=== PATIENT | female | born 1940 | race Caucasian/White ===

== ENCOUNTER 2017-02-17 11:19 | Inpatient (IN) | payer MEDICARE, BC ==
[2017-02-17] MEDS ORDERED: SODIUM CHLORIDE 0.9% 1,000 ML IV STA (11:32)
[2017-02-17 12:06] LABS: Basophils # (A) 0.1 k/uL (0-0.2); Basophils % (A) 2 %; CH 30.4; CHCM 34.2; Eosinophils % (A) 0 %; HCT 43.4 % (34.0-46.0); HDW 2.25; HGB 15.2 gm/dL (11.4-16.0); Luc # (Auto) 0.12; Luc % (Auto) 3; Lymphocytes # (A) 0.6 k/uL (1.0-4.8); Lymphocytes % (A) 18 %; MCH 31.2 pg (25.0-35.0); MCV 89.1 fL (80.0-100.0); Mean Platelet Volume 7.1; Monocytes # (A) 0.4 k/uL (0-1.0); Monocytes % (A) 11 %; Neutrophils # (A) 2.3 k/uL (1.3-7.7); Neutrophils % (A) 66 %; RBC 4.87 m/uL (3.80-5.40); RDW 13.1 % (11.5-15.5); WBC 3.5 k/uL (3.8-10.6); WBC (Perox) 3.46
--- NOTE | 2017-02-17 12:06 | XR ---
EXAMINATION TYPE: XR chest 2V DATE OF EXAM: 02/17/2017 12:00 PM COMPARISON: Prior chest x-ray September 09, 2015 HISTORY: Syncope and weakness. TECHNIQUE: Frontal and lateral views of the chest are obtained. FINDINGS: There is no focal air space opacity, pleural effusion, or pneumothorax seen. The cardiac silhouette size is stable and enlarged. The osseous structures are demineralized. IMPRESSION: Cardiomegaly without acute pulmonary process currently.
[2017-02-17 12:15] LABS: Creatine Kinase 305 U/L (30-135)
[2017-02-17 12:16] LABS: ALT 43 U/L (9-52); AST 54 U/L (14-36); Alkaline Phosphatase 73 U/L (38-126); Anion Gap 12 mmol/L; Blood Urea Nitrogen 21 mg/dL (7-17); Calcium 8.8 mg/dL (8.4-10.2); Carbon Dioxide 27 mmol/L (22-30); Chloride 84 mmol/L (98-107); Glucose 119 mg/dL (74-99); Non-African American GFR(MDRD) >60 (>60 ml/min/1.73 sqM); Potassium 3.2 mmol/L (3.5-5.1); Sodium 123 mmol/L (137-145); Total Bilirubin 0.7 mg/dL (0.2-1.3); Total Protein 6.7 g/dL (6.3-8.2)
[2017-02-17 12:18] LABS: INR 1.2 (<1.1); Partial Thromboplastin Time 30.5 sec (22.0-30.0); Prothrombin Time 12.3 sec (9.0-12.0)
--- NOTE | 2017-02-17 12:24 | CT ---
EXAMINATION TYPE: CT brain wo con DATE OF EXAM: 02/17/2017 12:16 PM HISTORY: weakness per order. Fall injury with headache and possible loss of consciousness. CT DLP: 961 mGycm. Automated Exposure Control for Dose Reduction was Utilized. TECHNIQUE: CT scan of the head is performed without contrast. COMPARISON: None. FINDINGS: There is no acute intracranial hemorrhage or midline shift identified. There is diffuse v entricular and sulcal prominence consistent with diffuse age-related cerebral atrophy. There is low- attenuation in the periventricular white matter consistent with chronic small vessel ischemic change. There is patchy opacification involving inferior right frontal sinus and anterior right ethmoid sinu ses. Remainder of visualized paranasal sinuses are clear. Neither lens is well seen. The calvarium is intact. IMPRESSION: No acute intracranial hemorrhage or midline shift. There is mild diffuse age-related ce rebral atrophy and mild to moderate chronic small vessel ischemic change noted. Acute right-sided pa ranasal sinus disease is noted.
[2017-02-17 12:28] LABS: Creatine Kinase MB 2.2 ng/mL (0.0-2.4); Troponin I <0.012 ng/mL (0.000-0.034)
--- NOTE | 2017-02-17 12:48 | ED ---
Weakness HPI - General Chief complaint: Weakness Stated complaint: Weakness Time Seen by Provider: 02/17/17 11:24 Source: patient, EMS Mode of arrival: EMS Limitations: altered mental status - History of Present Illness Initial comments: She fell this morning between 9 and 9:30 she threw up before she fell and then she threw up after she fell I had a chance to talk to 2 of her sons none of them witnessed the fall she lives with her son and he was at work when she fell in no head there was a family members at home and she fell they said she was she had lost consciousness for about a 4 minutes and she is still unable to recall the full detail of the events, she denies any head injury there are no lacerations there are no hematomas she denies any neck pain she denies any other laceration or injury to the upper or lower extremities. She had upper respiratory tract infection she went to see her family doctor she was prescribed some antibiotics yesterday. At this point she denies any headache no chest pain or shortness of breath no abdominal pain no frequency urgency dysuria no signs of TIA or CVA Severity scale (1-10): 0 - Related Data Home Medications Medication Instructions Recorded Confirmed Beclomethasone Dip 80 Mcg/Puff 1 puff INHALATION RT-BID 02/17/17 02/17/17 [Qvar 80 mcg] Benzonatate [Tessalon Perles] 100 mg PO TID PRN 02/17/17 02/17/17 Bisoprolol [Zebeta] 5 mg PO HS 02/17/17 02/17/17 Citalopram Hydrobromide 20 mg PO DAILY 02/17/17 02/17/17 [Citalopram HBr] Doxycycline Hyclate [Doxycycline 100 mg PO BID 02/17/17 02/17/17 Hyclate] LORazepam [Lorazepam] 1 mg PO HS 02/17/17 02/17/17 Latanoprost [Latanoprost] 1 drop BOTH EYES HS 02/17/17 02/17/17 Losartan/Hydrochlorothiazide 1 tab PO DAILY 02/17/17 02/17/17 [Losartan-Hctz 100-25 mg Tab] Montelukast [Singulair] 10 mg PO HS 02/17/17 02/17/17 Timolol 0.5% Ophth Gel Forming 1 drops BOTH EYES DAILY 02/17/17 02/17/17 [Timoptic-Xe] Allergies Allergy/AdvReac Type Severity Reaction Status Date / Time Penicillins Allergy Unknown Verified 02/17/17 12:54 Review of Systems ROS Statement: Those systems with pertinent positive or pertinent negative responses have been documented in the HPI. ROS Other: All systems not noted in ROS Statement are negative. Past Medical History Past Surgical History: Appendectomy, Cholecystectomy Additional Past Surgical History / Comment(s): eye surgery, ootorectomy General Exam - General Exam Comments Initial Comments: General: The patient is awake and alert, in no distress is look pale and tired though GCS is 15 Skin: Skin is warm and dry and no rashes or lesions are noted. Examination of the scalp did not reveal any hematoma, abrasion or ecchymosis Eye: Pupils are equal, round and reactive to light, extra-ocular movements are intact; there is normal conjunctiva bilaterally. Ears, nose, mouth and throat: There are moist mucous membranes and no oral lesions. Neck: The neck is supple, there is no tenderness no focal tenderness noticed on the patient to the cervical spine Cardiovascular: There is a regular rate and rhythm. No murmur, rub or gallop is appreciated. Respiratory: To auscultation bilateral, no wheezing no rhonchi no distress respiratory bolivar noticed Gastrointestinal: Soft, non-distended, non-tender abdomen without masses or organomegaly noted. There is no rebound or guarding present. Bowel sounds are unremarkable. Back: There is no tenderness to palpation in the midline. There is no obvious deformity. Musculoskeletal: Normal ROM, no tenderness, There is no pedal edema. There is no calf tenderness or swelling. No cords were appreciated. Neurological: CN II-XII intact, Cranial nerves III through XII are intact. There are no obvious motor or sensory deficits. Coordination appears grossly intact. Speech is normal. Psychiatric: Cooperative, appropriate mood & affect, normal judgment. Limitations: altered mental status Course Vital Signs 02/17/17 02/17/17 02/17/17 11:19 11:37 11:52 Temperature 97.2 F L 97.9 F Pulse Rate 60 Pulse Rate [ 60 58 L Right Supine Vest Finisher ] Respiratory 16 16 16 Rate Blood Pressure 134/63 Blood Pressure 120/62 122/64 [Right Arm Supine] O2 Sat by Pulse 98 Oximetry 02/17/17 02/17/17 12:22 12:30 Temperature 97.0 F L Pulse Rate 60 Pulse Rate [ 62 Right Supine Vest Finisher ] Respiratory 16 16 Rate Blood Pressure 124/60 Blood Pressure 127/64 [Right Arm Supine] O2 Sat by Pulse 98 Oximetry EKG Findings - EKG Comments: EKG Findings:: EKG is a sinus bradycardia with short NV interval B ventricular rate is 58 NV interval is 96 QRS duration is 84 QT/QTc is 452/443 review of this EKG reveals some T-wave flattening in lead 3 and aVF as well as V1 no ST elevation or ST depression noticed in the other leads Medical Decision Making - Lab Data Result diagrams: 02/17/17 11:35 02/17/17 11:35 Lab Results 02/17/17 02/17/17 02/17/17 Range/Units 11:35 11:35 11:35 WBC 3.5 L (3.8-10.6) k/uL RBC 4.87 (3.80-5.40) m/uL Hgb 15.2 (11.4-16.0) gm/dL Hct 43.4 (34.0-46.0) % MCV 89.1 (80.0-100.0) fL MCH 31.2 (25.0-35.0) pg MCHC 35.0 (31.0-37.0) g/dL RDW 13.1 (11.5-15.5) % Plt Count 201 (150-450) k/uL Neutrophils % 66 % Lymphocytes % 18 % Monocytes % 11 % Eosinophils % 0 % Basophils % 2 % Neutrophils # 2.3 (1.3-7.7) k/uL Lymphocytes # 0.6 L (1.0-4.8) k/uL Monocytes # 0.4 (0-1.0) k/uL Eosinophils # 0.0 (0-0.7) k/uL Basophils # 0.1 (0-0.2) k/uL PT (9.0-12.0) sec INR (<1.1) APTT (22.0-30.0) sec Sodium 123 L (137-145) mmol/L Potassium 3.2 L (3.5-5.1) mmol/L Chloride 84 L (98-107) mmol/L Carbon Dioxide 27 (22-30) mmol/L Anion Gap 12 mmol/L BUN 21 H (7-17) mg/dL Creatinine 0.73 (0.52-1.04) mg/dL Est GFR (MDRD) Af Amer >60 (>60 ml/min/1.73 sqM) Est GFR (MDRD) Non-Af >60 (>60 ml/min/1.73 sqM) Glucose 119 H (74-99) mg/dL Plasma Lactic Acid Kan[place] (0.7-2.0) mmol/L Calcium 8.8 (8.4-10.2) mg/dL Total Bilirubin 0.7 (0.2-1.3) mg/dL AST 54 H (14-36) U/L ALT 43 (9-52) U/L Alkaline Phosphatase 73 (38-126) U/L Total Creatine Kinase 305 H (30-135) U/L CK-MB (CK-2) 2.2 (0.0-2.4) ng/mL CK-MB (CK-2) Rel Index 0.7 Troponin I <0.012 (0.000-0.034) ng/mL Total Protein 6.7 (6.3-8.2) g/dL Albumin 3.8 (3.5-5.0) g/dL Urine Color Urine Appearance (Clear) Urine pH (5.0-8.0) Ur Specific [place] (1.001-1.035) Urine Protein (Negative) Urine Glucose (UA) (Negative) Urine Ketones (Negative) Urine Blood (Negative) Urine Nitrite (Negative) Urine Bilirubin (Negative) Urine Urobilinogen (<2.0) mg/dL Ur Leukocyte Esterase (Negative) Urine RBC (0-5) /hpf Urine WBC (0-5) /hpf Urine Bacteria (None) /hpf Hyaline Casts (0-2) /lpf Urine Mucus (None) /hpf 02/17/17 02/17/17 02/17/17 Range/Units 11:35 11:35 14:10 WBC (3.8-10.6) k/uL RBC (3.80-5.40) m/uL Hgb (11.4-16.0) gm/dL Hct (34.0-46.0) % MCV (80.0-100.0) fL MCH (25.0-35.0) pg MCHC (31.0-37.0) g/dL RDW (11.5-15.5) % Plt Count (150-450) k/uL Neutrophils % % Lymphocytes % % Monocytes % % Eosinophils % % Basophils % % Neutrophils # (1.3-7.7) k/uL Lymphocytes # (1.0-4.8) k/uL Monocytes # (0-1.0) k/uL Eosinophils # (0-0.7) k/uL Basophils # (0-0.2) k/uL PT 12.3 H (9.0-12.0) sec INR 1.2 (<1.1) APTT 30.5 H (22.0-30.0) sec Sodium (137-145) mmol/L Potassium (3.5-5.1) mmol/L Chloride (98-107) mmol/L Carbon Dioxide (22-30) mmol/L Anion Gap mmol/L BUN (7-17) mg/dL Creatinine (0.52-1.04) mg/dL Est GFR (MDRD) Af Amer (>60 ml/min/1.73 sqM) Est GFR (MDRD) Non-Af (>60 ml/min/1.73 sqM) Glucose (74-99) mg/dL Plasma Lactic Acid [place] 1.2 (0.7-2.0) mmol/L Calcium (8.4-10.2) mg/dL Total Bilirubin (0.2-1.3) mg/dL AST (14-36) U/L ALT (9-52) U/L Alkaline Phosphatase (38-126) U/L Total Creatine Kinase (30-135) U/L CK-MB (CK-2) (0.0-2.4) ng/mL CK-MB (CK-2) Rel Index Troponin I (0.000-0.034) ng/mL Total Protein (6.3-8.2) g/dL Albumin (3.5-5.0) g/dL Urine Color Yellow Urine Appearance Clear (Clear) Urine pH 6.0 (5.0-8.0) Ur Specific [place] 1.017 (1.001-1.035) Urine Protein 2+ H (Negative) Urine Glucose (UA) Negative (Negative) Urine Ketones 1+ H (Negative) Urine Blood Small H (Negative) Urine Nitrite Negative (Negative) Urine Bilirubin Negative (Negative) Urine Urobilinogen <2.0 (<2.0) mg/dL Ur Leukocyte Esterase Negative (Negative) Urine RBC 1 (0-5) /hpf Urine WBC 1 (0-5) /hpf Urine Bacteria Rare H (None) /hpf Hyaline Casts 3 H (0-2) /lpf Urine Mucus Rare H (None) /hpf Disposition Clinical Impression: Fall, Hyponatremia, Hypokalemia, Syncope, Amnesia Disposition: ADMITTED IP TO THIS HOSP Condition: Fair Referrals: Aroldo Lowe DO [Primary Care Provider] - 1-2 days
[2017-02-17 14:35] LABS: Appearance,Urine Clear (Clear); Bacteria,Urine Rare /hpf; Bilirubin,Urine Negative (Negative); Glucose,Urine (UA) Negative (Negative); Ketones,Urine 1+ (Negative); Leukocyte Esterase,Urine Negative (Negative); Mucus,Urine Rare /hpf; Nitrite,Urine Negative (Negative); Particle Count 4728; Protein,Urine 2+ (Negative); RBC,Urine 1 /hpf (0-5); Specific Gravity,Urine 1.017 (1.001-1.035); UA Billing (MACRO vs. MICRO) MICRO; Urobilinogen,Urine <2.0 mg/dL (<2.0); WBC,Urine 1 /hpf (0-5)
[2017-02-17] MEDS ORDERED: NALOXONE 0.4 MG/ML 1 ML VIAL IV PRN (15:04)
[2017-02-17] MEDS ORDERED: BENZONATATE 100 MG CAP PO PRN (15:08)
[2017-02-17] MEDS ORDERED: POTASSIUM CHLORIDE ORAL LIQUID 40 MEQ/30 ML CUP PO ONE (15:09)
--- NOTE | 2017-02-17 16:07 | P.HPIM ---
History of Present Illness H&P Date: 02/17/17 Chief Complaint: Syncope/hyponatremia This is a 76-year-old female one of Dr. Lowe with a previous medical history significant for hypertension and hypertensive cardiovascular disease, osteoarthritis, patient has not been feeling well for the past week with poor appetite associated with early satiety, nausea feeling without any vomiting, patient was complaining of increased pressure behind her sinuses she ended up going to [facility], and she was prescribed doxycycline 100 mg orally twice every day along with the Tessalon Perles 3 times every day, patient only took one of each and the patient was going into the kitchen today where she felt extremely dizzy and then she passed out completely lasted for about 3-4 minutes EMS came and the patient was on the floor her [id number] ran to the kitchen and she found her on the floor without any loss of urine or stool there was no seizure activity described at that time. Patient was brought into the emergency department at [facility] via EMS and she was found to have a severe hyponatremia and hypokalemia along with hypochloremia, upon investigated the patient further she stated that she had significant diarrhea today and she had an episode of nausea and vomiting by the time she came to the emergency department, she has been taking her dictations on an empty stomach and she has a diuretics, patient stated also that the while ago she developed to have a severe hyponatremia and she was placed on sodium chloride tablets by Dr. Lowe but she was taken off of those because her sodium was back to normal. Patient had a computed tomography scan of the brain that was negative for acute infarct or bleed, chest x-ray was normal, EKG was normal, patient was admitted to the hospital for syncope thought to be vasovagal with orthostatic changes, patient will be seen and evaluated by neurology as well. Review of Systems Constitutional: Reports fatigue, Reports malaise, Reports sweats, Reports weakness, Reports weight loss, Denies chills, Denies chronic headaches, Denies chronic pain Eyes: denies blurred vision, denies bulging eye, denies decreased vision, denies diplopia, denies discharge Ears: deny: decreased hearing Ears, nose, mouth and throat: Reports sinus pain, Reports sinus pressure, Reports vertigo, Denies dysphagia, Denies neck lump, Denies sore throat Cardiovascular: Reports high blood pressure, Denies chest pain, Denies decreased exercise tolerance, Denies dyspnea on exertion, Denies phlebitis, Denies rapid heart beat, Denies shortness of breath, Denies syncope Respiratory: Denies congestion, Denies cough, Denies cough with sputum, Denies dyspnea, Denies home oxygen, Denies sleep apnea, Denies snoring, Denies wheezing Gastrointestinal: Reports change in bowel habits, Reports diarrhea, Reports early satiety, Reports loss of appetite, Reports nausea, Reports vomiting, Denies abdominal pain, Denies belching, Denies bloating, Denies hematemesis, Denies hematochezia, Denies indigestion, Denies lactose intolerance, Denies melena Genitourinary: Denies dysuria, Denies hematuria Menstruation: Reports postmenopausal Musculoskeletal: Denies atrophy, Denies fractures, Denies gait dysfunction, Denies low back pain, Denies prior amputations, Denies redness of joints, Denies shooting arm pain Musculoskeletal: absent: ankle pain, ankle stiffness, ankle swelling, elbow pain , elbow stiffness, elbow swelling, foot pain, foot stiffness, foot swelling, hand pain, hand stiffness, hand swelling, hip pain, hip stiffness, hip swelling , knee pain, knee stiffness, knee swelling, shoulder pain, shoulder stiffness, shoulder swelling, wrist pain, wrist stiffness, wrist swelling Integumentary: Denies pruritus, Denies rash Neurological: Reports syncope, Denies confusion, Denies convulsions, Denies loss of vision, Denies memory loss, Denies motor disturbance, Denies paralysis, Denies paresthesias Psychiatric: Reports anxiety, Reports depression, Denies sadness/tearfulness, Denies sleep disturbances, Denies suicidal ideation Endocrine: Denies fatigue, Denies weight change Past Medical History Past Medical History: Hyperlipidemia, Hypertension, Osteoarthritis (OA) Past Surgical History: Appendectomy, Cholecystectomy Additional Past Surgical History / Comment(s): Bilateral cataract surgery, Cholecystectomy, appendectomy, colonoscopy about 10 years ago, oophorectomy. Past Psychological History: Anxiety, Depression Smoking Status: Never smoker Past Drug Use History: None Reported - Past Family History Mother Family Medical History: Cancer, CVA/TIA (Mother at age of 91 from CVA and had breast cancer.) Father Family Medical History: CVA/TIA, Dementia (Father at age of 84 from CVA as well as Alzheimer dementia.) Brother(s) Family Medical History: Coronary Artery Disease (CAD) (Patient had one brother who from heart disease.) Sister(s) Family Medical History: Cancer (Patient had 2 sisters one of them with breast cancer and metastatic disease to the bone the other one with breast cancer.) Son(s) Family Medical History: No Reported History (Patient has 2 sons no major medical problems.) Medications and Allergies Home Medications Medication Instructions Recorded Confirmed Type Beclomethasone Dip 80 Mcg/Puff 1 puff INHALATION RT-BID 02/17/17 02/17/17 History [Qvar 80 mcg] Benzonatate [Tessalon Perles] 100 mg PO TID PRN 02/17/17 02/17/17 History Bisoprolol [Zebeta] 5 mg PO HS 02/17/17 02/17/17 History Citalopram Hydrobromide 20 mg PO DAILY 02/17/17 02/17/17 History [Citalopram HBr] Doxycycline Hyclate [Doxycycline 100 mg PO BID 02/17/17 02/17/17 History Hyclate] LORazepam [Lorazepam] 1 mg PO HS 02/17/17 02/17/17 History Latanoprost [Latanoprost] 1 drop BOTH EYES HS 02/17/17 02/17/17 History Losartan/Hydrochlorothiazide 1 tab PO DAILY 02/17/17 02/17/17 History [Losartan-Hctz 100-25 mg Tab] Montelukast [Singulair] 10 mg PO HS 02/17/17 02/17/17 History Timolol 0.5% Ophth Gel Forming 1 drops BOTH EYES DAILY 02/17/17 02/17/17 History [Timoptic-Xe] Allergies Allergy/AdvReac Type Severity Reaction Status Date / Time Penicillins Allergy Unknown Verified 02/17/17 12:54 Physical Exam Vitals: Vital Signs Pulse Pulse Pulse Resp BP BP BP 02/17/17 15:06 64 67 75 16 134/62 103/55 121/68 - Constitutional General appearance: average body habitus, no acute distress - EENT Eyes: anicteric sclerae, EOMI, PERRLA, no ptosis, no scleral icterus, normal appearance ENT: hearing grossly normal, NA/AT, normal oropharynx, no thrush Ears: bilateral: normal - Neck Neck: no lymphadenopathy, normal ROM, no rigidity, no stridor, no thyromegaly Carotids: bilateral: upstroke normal Thyroid: bilateral: normal size - Respiratory Respiratory: bilateral: diminished, negative: dullness, rales, rhonchi, wheezing , prolonged expiration, prolonged inspiration - Cardiovascular Rhythm: regular Heart sounds: normal: S1, S2 Abnormal Heart Sounds: no systolic murmur, no diastolic murmur, no S3 Gallop, no S4 Gallop - Gastrointestinal General gastrointestinal: normal bowel sounds, soft, no splenomegaly, no tenderness, no umbilical hernia, no ventral hernia - Integumentary Integumentary: normal, normal turgor - Neurologic Neurologic: CNII-XII intact - Musculoskeletal Musculoskeletal: gait normal, generalized weakness, strength equal bilaterally - Psychiatric Psychiatric: A&O x's 3, appropriate affect, intact judgment & insight Results CBC & Chem 7: 02/17/17 11:35 02/17/17 11:35 Thrombosis Risk Factor Assmnt - DVT/VTE Prophylaxis DVT/VTE Prophylaxis: Pharmacologic Prophylaxis ordered, Mechanical Prophylaxis ordered Assessment and Plan Plan: Assessment and plan: 1. Syncope likely related to hypovolemia with vasovagal reaction. Patient was given normal saline 1 L followed by normal saline at 125 mL an hour, apply knee- high RAHEEL hose, we will follow-up with the patient, continue to monitor the orthostatics. 2. Hypovolemic hyponatremia with hypochloremia and hypokalemia. Related to poor oral intake of fluid and the use of diuretics, subsequently we'll discontinue hydrochlorothiazide and continue losartan 100 mg orally once every day. Monitor the patient the CMP in the next 6 hours. We will check serum as well as as well as the patient did have a history of hyponatremia in the past. We will check TSH, free cortisol level. 3. Acute sinusitis. Continue patient on IV anabiotic in the form of Levaquin. 4. Hypertension and hypertensive cardiovascular disease. Continue bisoprolol 5 mg orally once every day, losartan 100 mg orally once every day. 5. Glaucoma. Continue patient on timolol as well as Xalatan. 6. Osteoarthritis. Continue current pain management. 7. Anxiety disorder. Continue citalopram 20 mg orally once every day as well as lorazepam 1 mg at bedtime. 8. Asthma. Continue Qvar 80 g 1 puff inhalation twice every day as well as singular 10 mg at bed time. 9. DVT prophylaxis. Continue patient on heparin 5000 units subcutaneously every 12 hours, along with knee-high RAHEEL hose. 10. GI prophylaxis. Continue patient on Protonix 40 mg orally once every day. 11. Admitted to inpatient. Estimate a length of stay 2 midnights. 12. Patient is a full code.
[2017-02-17 19:45] LABS: Anion Gap 11 mmol/L; Blood Urea Nitrogen 19 mg/dL (7-17); Calcium 8.7 mg/dL (8.4-10.2); Carbon Dioxide 27 mmol/L (22-30); Chloride 88 mmol/L (98-107); Glucose 106 mg/dL (74-99); Non-African American GFR(MDRD) >60 (>60 ml/min/1.73 sqM); Potassium 3.6 mmol/L (3.5-5.1); Sodium 126 mmol/L (137-145)
[2017-02-17] MEDS: MONTELUKAST 10 MG TAB PO SCH (20:15)
[2017-02-17] MEDS: LATANOPROST 0.005% OPHTH DROPS 2.5 ML BTL BOTH EYES SCH (20:15)
[2017-02-17] MEDS: LORazepam 1 MG TAB PO SCH (20:15)
[2017-02-17] MEDS: HEPARIN SODIUM,PORCINE 5,000 UNIT/ML 1 ML VIAL SQ SCH (20:15)
[2017-02-17] MEDS ORDERED: BISOPROLOL 5 MG TAB PO SCH (21:00)
[2017-02-17] MEDS ORDERED: DOXYCYCLINE 50 MG CAP PO SCH (21:00)
--- NOTE | 2017-02-17 21:31 | P.CNNES ---
History of Present Illness Consult date: 02/17/17 Reason for Consult: Patient being evaluated for syncope and hyponatremia. History of Present Illness: This patient is a 76-year-old right-handed white female who apparently today had episode in which she passed out at home. Patient was not feeling well today and did have a bout of diarrhea and nausea vomiting. She was found collapsed on the kitchen floor and EMS was called to the home. She was brought into the emergency room where she was seen in the ER by Dr. Fay. She was sent for a computed tomography scan of the brain which revealed only mild diffuse age-related atrophy. There was chronic small vessel ischemic changes noted. Patient was subsequent admitted to Hospital. Patient does not have clear memory of the actual syncopal episode. She did not have any seizure activity according to the patient. She did not bite her tongue or have any bowel or bladder incontinence. In the emergency room the patient was found to have evidence of severe hyponatremia. Her serum sodium was 123. She was put on a normal saline drip and admitted to Hospital. Patient is now resting comfortably. She denies any symptoms of significant weakness at this time. She denies any previous history of TIA or stroke. We reviewed the computed tomography scan of the brain results with her today at length. Patient apparently has had hyponatremia in the past. She was placed on sodium tablets in the past. Patient's symptoms suggest also possibility of vasovagal syncope and orthostatic changes. She does not remember if she was feeling lightheaded on arising early in the morning. She will be checked for orthostatic blood pressure changes. She may require further evaluation for possibility of SIADH syndrome. As noted she has no previous history of TIA or stroke. She is now been admitted and neurology has been consulted for further evaluation and recommendations. Review of Systems Constitutional: Denies chills, Denies fever Eyes: denies blurred vision, denies pain Ears, nose, mouth and throat: Denies headache, Denies sore throat Cardiovascular: Denies chest pain, Denies shortness of breath Respiratory: Denies cough Gastrointestinal: Denies abdominal pain, Denies diarrhea, Denies nausea, Denies vomiting Genitourinary: Denies dysuria, Denies hematuria Musculoskeletal: Denies myalgias Integumentary: Denies pruritus, Denies rash Neurological: Reports change in mentation, Reports paresthesias, Reports syncope , Denies numbness, Denies weakness Psychiatric: Denies anxiety, Denies depression Endocrine: Denies fatigue, Denies weight change Past Medical History Past Medical History: Asthma, Hyperlipidemia, Hypertension, Osteoarthritis (OA) , Sleep Apnea/CPAP/BIPAP Additional Past Medical History / Comment(s): hiatal hernia History of Any Multi-Drug Resistant Organisms: None Reported Past Surgical History: Appendectomy, Cholecystectomy Additional Past Surgical History / Comment(s): Bilateral cataract surgery, Cholecystectomy, appendectomy, colonoscopy about 10 years ago, rt oophorectomy and partial lt -pt can't remember why. Past Anesthesia/Blood Transfusion Reactions: No Reported Reaction Past Psychological History: Anxiety, Depression Additional Psychological History / Comment(s): pt lives in her 2 story home [place] has 4 front steps. her son,vin in law, 2 grandkids -live with her. no pets, no outside services recieved, no medical equipment. 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 Smoking Status: Never smoker Past Alcohol Use History: None Reported Past Drug Use History: None Reported - Past Family History Mother Family Medical History: Cancer, CVA/TIA Additional Family Medical History / Comment(s): breast cancer Father Family Medical History: CVA/TIA, Dementia Brother(s) Family Medical History: Coronary Artery Disease (CAD) Sister(s) Family Medical History: Cancer Son(s) Family Medical History: No Reported History Medications and Allergies Home Medications Medication Instructions Recorded Confirmed Type Beclomethasone Dip 80 Mcg/Puff 1 puff INHALATION RT-BID 02/17/17 02/17/17 History [Qvar 80 mcg] Benzonatate [Tessalon Perles] 100 mg PO TID PRN 02/17/17 02/17/17 History Bisoprolol [Zebeta] 5 mg PO HS 02/17/17 02/17/17 History Citalopram Hydrobromide 20 mg PO DAILY 02/17/17 02/17/17 History [Citalopram HBr] Doxycycline Hyclate [Doxycycline 100 mg PO BID 02/17/17 02/17/17 History Hyclate] LORazepam [Lorazepam] 1 mg PO HS 02/17/17 02/17/17 History Latanoprost [Latanoprost] 1 drop BOTH EYES HS 02/17/17 02/17/17 History Losartan/Hydrochlorothiazide 1 tab PO DAILY 02/17/17 02/17/17 History [Losartan-Hctz 100-25 mg Tab] Montelukast [Singulair] 10 mg PO HS 02/17/17 02/17/17 History Timolol 0.5% Ophth Gel Forming 1 drops BOTH EYES DAILY 02/17/17 02/17/17 History [Timoptic-Xe] Allergies Allergy/AdvReac Type Severity Reaction Status Date / Time Penicillins Allergy Unknown Verified 02/17/17 12:54 Physical Examination - Vital Signs Vital Signs: Vital Signs Temp Pulse Pulse Pulse Resp BP BP 02/17/17 15:36 97.0 F L 63 16 130/68 02/17/17 15:06 64 67 75 16 134/62 BP BP Pulse Ox 02/17/17 15:36 98 02/17/17 15:06 103/55 121/68 Intake and Output 02/17/17 02/17/17 02/17/17 06:59 14:59 22:59 Intake Total 10 Balance 10 Intake: IV 10 Invasive Line 2 10 Other: Voiding Method Toilet - Constitutional General appearance: average body habitus, cooperative - EENT EENT: PERRL, mucous membranes moist - Respiratory Respiratory: lungs clear, normal breath sounds - Cardiovascular Cardiovascular: regular rate, normal S1, normal S2 Extremities: no peripheral edema bilaterally - Gastrointestinal Gastrointestinal: normoactive bowel sounds - Integumentary Integumentary: normal - Neurologic Cranial nerve examination: PERRL, EOMI, VFF, V1/V2/V3 grossly intact, face symmetric, intact gag reflex, intact corneal reflex, normal palatal elevation Speech examination: intact Sensorimotor examination: intact Detailed motor examination: grossly full strength in all extremities Detailed sensory examination: intact Reflex and gait examination: intact Reflexes: 1+: ankle, bicep, knee, tricep - Musculoskeletal Musculoskeletal: no pain - Psychiatric Psychiatric: mood/affect appropriate, cooperative Results - Laboratory Findings CBC and BMP: 02/17/17 11:35 02/17/17 17:21 Abnormal Lab Findings: Abnormal Labs 02/17/17 17:21 Sodium 126 L Chloride 88 L BUN 19 H Glucose 106 H TSH 0.374 L Assessment and Plan (1) Vasovagal syncope Status: Acute Code(s): R55 - SYNCOPE AND COLLAPSE (2) Amnesia Status: Acute Code(s): R41.3 - OTHER AMNESIA (3) Hyponatremia Status: Acute Code(s): E87.1 - HYPO-OSMOLALITY AND HYPONATREMIA Plan: This patient is a pleasant 76-year-old female who had a acute syncopal episode at home. She was brought into the emergency room for further evaluation. She is found to have evidence of severe hyponatremia with a serum sodium of 123. She was started on normal saline and admitted to the hospital. Her neurological examination at this time is nonfocal. She underwent computed tomography scan of the brain results which are noted above. This patient likely suffered acute vasovagal syncope secondary to severe hyponatremia. Would recommend slow correction of the hyponatremic state. We will continue close neurological follow-up for this patient during this admission. She has no previous history of syncope and/or seizures. We will continue to monitor her closely for any neurological status. Her overall prognosis at this time remains guarded. Time with Patient: Greater than 30
[2017-02-18 06:22] LABS: Aty Lym Flag Slight; CH 30.2; CHCM 33.5; HCT 38.4 % (34.0-46.0); HDW 2.24; MCH 30.5 pg (25.0-35.0); MCHC 33.7 g/dL (31.0-37.0); MCV 90.3 fL (80.0-100.0); Mean Platelet Volume 7.2; RBC 4.25 m/uL (3.80-5.40); RDW 13.1 % (11.5-15.5); WBC 3.1 k/uL (3.8-10.6); WBC (Perox) 3.08
[2017-02-18 06:40] LABS: Add Differential Manual Differential
[2017-02-18 06:40] LABS: ALT 42 U/L (9-52); AST 52 U/L (14-36); Alkaline Phosphatase 55 U/L (38-126); Anion Gap 9 mmol/L; Blood Urea Nitrogen 15 mg/dL (7-17); Calcium 8.4 mg/dL (8.4-10.2); Carbon Dioxide 24 mmol/L (22-30); Chloride 94 mmol/L (98-107); Glucose 89 mg/dL (74-99); Non-African American GFR(MDRD) >60 (>60 ml/min/1.73 sqM); Sodium 127 mmol/L (137-145); Total Bilirubin 0.6 mg/dL (0.2-1.3); Total Protein 5.6 g/dL (6.3-8.2)
[2017-02-18 06:43] LABS: Nucleated Red Blood Cells 0 /100 WBC (0-0); Total Cells Counted 100
[2017-02-18 06:44] LABS: Manual Review Performed
[2017-02-18 06:55] LABS: Potassium 3.3 mmol/L (3.5-5.1)
[2017-02-18] MEDS: BECLOMETHASONE DIP 80 MCG/PUFF INHALER INHALATION SCH ×3 (07:44→21:23)
[2017-02-18] MEDS ORDERED: POTASSIUM CHLORIDE ER 20 MEQ TAB.ER PO STA (09:00)
[2017-02-18] MEDS: CITALOPRAM HYDROBROMIDE 20 MG TAB PO SCH (09:03)
[2017-02-18] MEDS: HEPARIN SODIUM,PORCINE 5,000 UNIT/ML 1 ML VIAL SQ SCH ×2 (09:03→20:28)
[2017-02-18] MEDS: POTASSIUM CHLORIDE ORAL LIQUID 40 MEQ/30 ML CUP PO SCH (09:04)
[2017-02-18] MEDS: TIMOLOL 0.5% OPHTH DROPS 5 ML BTL BOTH EYES SCH ×2 (09:05→20:27)
--- NOTE | 2017-02-18 10:16 | P.PN ---
Subjective This is a 76-year-old female one of Dr. Lowe with a previous medical history significant for hypertension and hypertensive cardiovascular disease, osteoarthritis, patient has not been feeling well for the past week with poor appetite associated with early satiety, nausea feeling without any vomiting, patient was complaining of increased pressure behind her sinuses she ended up going to [facility] urgent care [facility], and she was prescribed doxycycline 100 mg orally twice every day along with the Tessalon Perles 3 times every day, patient only took one of each and the patient was going into the kitchen today where she felt extremely dizzy and then she passed out completely lasted for about 3-4 minutes EMS came and the patient was on the floor her [id number] ran to the kitchen and she found her on the floor without any loss of urine or stool there was no seizure activity described at that time. Patient was brought into the emergency department at [facility] via EMS and she was found to have a severe hyponatremia and hypokalemia along with hypochloremia, upon investigated the patient further she stated that she had significant diarrhea today and she had an episode of nausea and vomiting by the time she came to the emergency department, she has been taking her dictations on an empty stomach and she has a diuretics, patient stated also that the while ago she developed to have a severe hyponatremia and she was placed on sodium chloride tablets by Dr. Lowe but she was taken off of those because her sodium was back to normal. Patient had a computed tomography scan of the brain that was negative for acute infarct or bleed, chest x-ray was normal, EKG was normal, patient was admitted to the hospital for syncope thought to be vasovagal with orthostatic changes, patient will be seen and evaluated by neurology as well. 02/18: Patient has been evaluated by Dr. Adair likely patient suffered acute vasovagal syncope secondary to severe hyponatremia. Sodium is now 127, potassium is 3.3 and will be replaced. Chloride 94. IV fluids continued at 100 mL per hour. Urine osmolality and sodium ordered. Patient denies lightheadedness or dizziness. TSH was 0.374 and free T4 1 0.77. Blood and urine cultures are in process. A shunt went into a junctional rhythm for which cardiology consult and echocardiogram ordered. Bisoprlol placed on hold and losartan resumed without hydrochlorothiazide. Patient states her appetite is a little better. Objective - Vital Signs Vital signs: Vital Signs Temp 97.3 F L 02/17/17 20:00 Pulse 71 02/18/17 04:00 Resp 16 02/18/17 04:00 BP 141/61 02/18/17 04:00 Pulse Ox 97 02/18/17 04:00 Intake & Output 02/17/17 02/18/17 02/18/17 18:59 06:59 18:59 Intake Total 10 10 1320 Output Total 1 Balance 10 9 1320 Weight 85.4 kg Intake: IV 10 10 Invasive Line 2 10 10 Intake, IV Titration 1200 Amount Sodium Chloride 0.9% 1, 1200 000 ml @ 100 mls/hr IV . Q10H STA Rx#:[id number] Oral 120 Output: Stool 1 Other: Voiding Method Toilet Toilet # Voids 1 1 - Exam General appearance: average body habitus, no acute distress - EENT Eyes: anicteric sclerae, EOMI, PERRLA, no ptosis, no scleral icterus, normal appearance ENT: hearing grossly normal, NA/AT, normal oropharynx, no thrush Ears: bilateral: normal - Neck Neck: no lymphadenopathy, normal ROM, no rigidity, no stridor, no thyromegaly Carotids: bilateral: upstroke normal Thyroid: bilateral: normal size - Respiratory Respiratory: bilateral: diminished, negative: dullness, rales, rhonchi, wheezing , prolonged expiration, prolonged inspiration - Cardiovascular Rhythm: regular Heart sounds: normal: S1, S2 Abnormal Heart Sounds: no systolic murmur, no diastolic murmur, no S3 Gallop, no S4 Gallop - Gastrointestinal General gastrointestinal: normal bowel sounds, soft, no splenomegaly, no tenderness, no umbilical hernia, no ventral hernia - Integumentary Integumentary: normal, normal turgor - Neurologic Neurologic: CNII-XII intact - Musculoskeletal Musculoskeletal: gait normal, generalized weakness, strength equal bilaterally - Psychiatric Psychiatric: A&O x's 3, appropriate affect, intact judgment & insight - Labs CBC & Chem 7: 02/18/17 05:48 02/18/17 05:45 Labs: Abnormal Lab Results - Last 24 Hours (Table) 02/17/17 02/18/17 02/18/17 Range/Units 17:21 05:45 05:48 WBC 3.1 L (3.8-10.6) k/uL Neutrophils # (Manual) 1.2 L (1.3-7.7) k/uL Sodium 126 L 127 L (137-145) mmol/L Potassium 3.3 L (3.5-5.1) mmol/L Chloride 88 L 94 L (98-107) mmol/L BUN 19 H (7-17) mg/dL Glucose 106 H (74-99) mg/dL Osmolality 262 L (280-301) mosm/kg AST 52 H (14-36) U/L Total Protein 5.6 L (6.3-8.2) g/dL Albumin 2.9 L (3.5-5.0) g/dL TSH 0.374 L (0.465-4.680) mIU/L Assessment and Plan Plan: 1. Syncope likely related to hypovolemia with vasovagal reaction rule out cardiac arrhythmia. Patient was given normal saline 1 L followed by normal saline at 125 mL an hour, apply knee-high RAHEEL hose, we will follow-up with the patient, continue to monitor the orthostatics. Cardiology consult. Bisoprolol placed on hold. Urine osmolality and urine sodium ordered. 2. Hypovolemic hyponatremia with hypochloremia and hypokalemia. Related to poor oral intake of fluid and the use of diuretics, subsequently we'll discontinue hydrochlorothiazide and continue losartan 100 mg orally once every day. Monitor the patient the CMP in the next 6 hours. We will check serum as well as as well as the patient did have a history of hyponatremia in the past. We will check TSH, free cortisol level. 3. Acute sinusitis. Continue patient on IV anabiotic in the form of Levaquin. 4. Hypertension and hypertensive cardiovascular disease. Continue bisoprolol 5 mg orally once every day, losartan 100 mg orally once every day. 5. Glaucoma. Continue patient on timolol as well as Xalatan. 6. Osteoarthritis. Continue current pain management. 7. Anxiety disorder. Continue citalopram 20 mg orally once every day as well as lorazepam 1 mg at bedtime. 8. Asthma. Continue Qvar 80 g 1 puff inhalation twice every day as well as singular 10 mg at bed time. 9. DVT prophylaxis. Continue patient on heparin 5000 units subcutaneously every 12 hours, along with knee-high RAHEEL hose. 10. GI prophylaxis. Continue patient on Protonix 40 mg orally once every day. 11. Admitted to inpatient. Estimate a length of stay 2 midnights. 12. Patient is a full code. Discharge plan: Return home Impression and plan of care have been directed as dictated by the signing physician. Kassidy Goodwin nurse practitioner acting as scribe for signing physician. Time with Patient: Greater than 30
[2017-02-18] MEDS: SODIUM CHLORIDE 0.9% 1,000 ML IV SCH ×2 (11:22→20:21)
[2017-02-18] MEDS: LOSARTAN 50 MG TAB PO SCH (11:22)
--- NOTE | 2017-02-18 14:25 | ECHOF ---
Referral Reason:LVF MEASUREMENTS -------- HEIGHT: 165.1 cm WEIGHT: 85.3 kg BP: 120/65 IVSd: 1.2 cm (0.6 - 1.1) LVIDd: 3.4 cm (3.9 - 5.3) LVPWd: 1.3 cm (0.6 - 1.1) IVSs: 2.0 cm LVIDs: 1.8 cm LVPWs: 1.6 cm Ao Diam: 3.0 cm (2.0 - 3.7) AV Cusp: 1.9 cm (1.5 - 2.6) LA Diam: 2.7 cm (2.7 - 3.8) MV EXCURSION: 9.588 mm (> 18.000) MV EF SLOPE: 56 mm/s (70 - 150) EPSS: 0.6 cm MV E Yobany: 0.87 m/s MV DecT: 186 ms MV A Yobany: 0.91 m/s MV E/A Ratio: 0.95 RAP: 5.00 mmHg RVSP: 28.88 mmHg FINDINGS -------- Sinus rhythm. This was a technically adequate study. There is mild concentric left ventricular hypertrophy. Overall left ventricular systolic function is normal with, an EF between 55 - 60 %. The right ventricle is normal in size and function. The left atrium is normal in size. The right atrium is normal in size. Aortic valve is trileaflet and is mildly thickened. The mitral valve leaflets are mildly thickened. Mild mitral regurgitation is present. Mild tricuspid regurgitation present. The right ventricular systolic pressure, as measured by Doppler, is 28.88mmHg. Pulmonic valve appears structurally normal. The aortic root size is normal. The pericardium is normal. CONCLUSIONS -------- 1. Sinus rhythm. 2. Mild tricuspid regurgitation present. 3. The right ventricular systolic pressure, as measured by Doppler, is 28.88mmHg. 4. Pulmonic valve appears structurally normal. 5. The aortic root size is normal. 6. The pericardium is normal. 7. There is mild concentric left ventricular hypertrophy. 8. Overall left ventricular systolic function is normal with, an EF between 55 - 60 %. 9. The right ventricle is normal in size and function. 10. The left atrium is normal in size. 11. The right atrium is normal in size. 12. Aortic valve is trileaflet and is mildly thickened. 13. The mitral valve leaflets are mildly thickened. 14. Mild mitral regurgitation is present. SENIOR SOFTWARE DEVELOPMENT ENGINEER: Marcella Zapien RDCS
[2017-02-18 15:05] VITALS: BMI 31.3
[2017-02-18 16:16] LABS: Anion Gap 5 mmol/L; Blood Urea Nitrogen 14 mg/dL (7-17); Calcium 8.5 mg/dL (8.4-10.2); Carbon Dioxide 27 mmol/L (22-30); Chloride 96 mmol/L (98-107); Glucose 93 mg/dL (74-99); Non-African American GFR(MDRD) >60 (>60 ml/min/1.73 sqM); Potassium 4.2 mmol/L (3.5-5.1); Sodium 128 mmol/L (137-145)
--- NOTE | 2017-02-18 16:54 | CONS ---
DATE OF CONSULTATION: Mrs. Elizabeth Forte is a 76-year-old lady with a known history of hypertension and apparently has some degenerative joint disease. She lives with her son. For about a week or so, she has been having flu-like illness with fatigue, lack of energy, listlessness. No appetite. She has not eaten much and she has hardly drank any fluids over this time. Yesterday apparently, she felt very exhausted, and she does not recall, but she was apparently lying on the kitchen floor and she felt dizzy, lightheaded. She knew she was going to pass out, so she tried to lie down. She did not have any obvious injuries. She did not lose any control of bladder or bowel. EMS was called and she came into the hospital. Prior to the arrival to the hospital, she also had emesis. The history therefore is of about a week of nausea, listlessness, lack of energy, poor appetite and with almost no oral intake. After arrival, she was found to be hyponatremic, hypokalemic, dehydrated, received IV fluids and she feels better. I was asked to see her regarding possible syncope. The clinical picture suggests vasovagal type syncope precipitated by nausea and also severe dehydration, which seemed to have occurred over a week's time. This morning, she feels well. Her appetite has improved. She has not had any diarrhea or nausea. She received a lot of IV fluids and she feels better. Nobody witnessed the fall and there was no actual significant injury either. Neurology evaluation is also in progress. PAST MEDICAL HISTORY: Evidence of hypertension. She has history of appendectomy, cholecystectomy in the past. Medications at home include: losartan HCTZ 100/25 one tablet daily. She also takes a small dose of bisoprolol and Celexa. ALLERGIES: PENICILLIN. REVIEW OF SYSTEMS: Unremarkable other than above-mentioned facts. On examination, blood pressure was 124/70, pulse rate 70 per minute, with orthostatic changes. HEENT: Unremarkable. Fundus was not examined by me. Neck is supple. There is no JVD. I do not hear a carotid bruit. Heart exam reveals S1 and S2. There is a short systolic murmur. Lungs are clear. Abdomen is soft, nontender. Lower extremities reveal normal pulses. No edema. Central nervous system is normal. EKG revealed a sinus mechanism without acute changes and minor nonspecific ST abnormality noted. Laboratory data revealed that her sodium and potassium were lower. There is some improvement already. Her thyroid levels are normal. Cortisol level is also normal. IMPRESSION: 1. Vasovagal syncope precipitated by nausea and dehydration. Patient is recovering from flu-like illness. 2. Hypertension. RECOMMENDATIONS: I am recommending that we will continue to hydrate her with IV fluids at 100 mL per hour and no intervention is necessary. Neuro workup is in progress. We will continue to do telemetry for one more day. I will review the echocardiogram that was performed earlier today. Thank you very much for the consult.
[2017-02-18] MEDS: LATANOPROST 0.005% OPHTH DROPS 2.5 ML BTL BOTH EYES SCH (20:25)
[2017-02-18] MEDS: LORazepam 1 MG TAB PO SCH (20:28)
[2017-02-18] MEDS: MONTELUKAST 10 MG TAB PO SCH (20:28)
[2017-02-19 01:23] VITALS: RESP 16
[2017-02-19] MEDS: SODIUM CHLORIDE 0.9% 1,000 ML IV SCH (05:45)
[2017-02-19 06:58] LABS: Anion Gap 6 mmol/L; Blood Urea Nitrogen 10 mg/dL (7-17); Calcium 8.5 mg/dL (8.4-10.2); Carbon Dioxide 22 mmol/L (22-30); Chloride 100 mmol/L (98-107); Glucose 86 mg/dL (74-99); Non-African American GFR(MDRD) >60 (>60 ml/min/1.73 sqM); Potassium 4.2 mmol/L (3.5-5.1); Sodium 128 mmol/L (137-145)
[2017-02-19] MEDS: LOSARTAN 50 MG TAB PO SCH (09:01)
[2017-02-19] MEDS: POTASSIUM CHLORIDE ORAL LIQUID 40 MEQ/30 ML CUP PO SCH (09:01)
[2017-02-19] MEDS: CITALOPRAM HYDROBROMIDE 20 MG TAB PO SCH (09:01)
[2017-02-19] MEDS: TIMOLOL 0.5% OPHTH DROPS 5 ML BTL BOTH EYES SCH (09:02)
[2017-02-19] MEDS: HEPARIN SODIUM,PORCINE 5,000 UNIT/ML 1 ML VIAL SQ SCH (09:02)
[2017-02-19 09:14] VITALS: BP 138/63; PULSE 79; TEMP 97.5
[2017-02-19] MEDS: BECLOMETHASONE DIP 80 MCG/PUFF INHALER INHALATION SCH (09:15)
[2017-02-19] MEDS ORDERED: SODIUM CHLORIDE 0.9% 1,000 ML IV SCH (09:45)
--- NOTE | 2017-02-19 10:30 | P.PN ---
Subjective This patient is 76-year-old female with history of hypertension and degenerative joint disease. Patient was admitted for evaluation of vasovagal syncope and weakness. Patient had an episode in which she passed out in her kitchen. She was feeling weak and lightheaded. She had been complaining of nausea and dehydration for several days prior to her admission. She was found to be hyponatremic on initial evaluation in the ER. She also had signs of dehydration. She is been started on IV fluids and feels better. Patient with symptoms suggesting vasovagal syncope secondary to dehydration. She seems to be recovering well. Her serum sodium is now improved to 127. She is trying to increase fluid intake as well. Would continue close monitoring of her serum sodium levels. We will continue close neurological follow-up for vasovagal syncope. She denies any headache or focal weakness at this time. Overall prognosis seems fair at this time. Objective - Vital Signs Vital signs: Vital Signs Temp 96.8 F L 02/18/17 16:00 Pulse 72 02/18/17 16:00 Resp 16 02/18/17 16:00 BP 139/72 02/18/17 16:00 Pulse Ox 100 02/18/17 16:00 Intake & Output 02/18/17 02/18/17 02/19/17 06:59 18:59 06:59 Intake Total 10 2480 Output Total 1 Balance 9 2480 Weight 85.4 kg 85.4 kg Intake: IV 10 800 Invasive Line 2 10 Sodium Chloride 0.9% 1, 800 000 ml @ 100 mls/hr IV . Q10H DEMETRIUS Rx#:[id number] Intake, IV Titration 1200 Amount Sodium Chloride 0.9% 1, 1200 000 ml @ 100 mls/hr IV . Q10H STA Rx#:[id number] Oral 480 Output: Stool 1 Other: Voiding Method Toilet Toilet # Voids 1 1 - Exam Physical examination: PHYSICAL EXAMINATION: Patient is resting comfortably in bed. VITAL SIGNS: Blood pressure is [139/72]. Heart rate is [72]. Respiration is [16] . Temperature is [96.8]. HEENT: Head is atraumatic, neck is supple, there were no carotid bruits. CHEST: Lungs are clear to auscultation and percussion. CARDIAC: S1, S2 normal rate and rhythm. There is no murmur. ABDOMEN: Soft and nontender. Bowel sounds are present. EXTREMITIES: There is no pedal edema. Peripheral pulses are present. Neurological examination: Patient has a nonfocal neurological examination. - Labs CBC & Chem 7: 02/18/17 05:48 02/19/17 06:09 Labs: Abnormal Lab Results - Last 24 Hours (Table) 02/17/17 02/18/17 02/18/17 Range/Units 17:21 05:45 05:48 WBC 3.1 L (3.8-10.6) k/uL Neutrophils # (Manual) 1.2 L (1.3-7.7) k/uL Sodium 126 L 127 L (137-145) mmol/L Potassium 3.3 L (3.5-5.1) mmol/L Chloride 88 L 94 L (98-107) mmol/L BUN 19 H (7-17) mg/dL Glucose 106 H (74-99) mg/dL Osmolality 262 L (280-301) mosm/kg AST 52 H (14-36) U/L Total Protein 5.6 L (6.3-8.2) g/dL Albumin 2.9 L (3.5-5.0) g/dL TSH 0.374 L (0.465-4.680) mIU/L Ur Random Sodium (30-90) mmol/L 02/18/17 02/18/17 Range/Units 14:30 15:47 WBC (3.8-10.6) k/uL Neutrophils # (Manual) (1.3-7.7) k/uL Sodium 128 L (137-145) mmol/L Potassium (3.5-5.1) mmol/L Chloride 96 L (98-107) mmol/L BUN (7-17) mg/dL Glucose (74-99) mg/dL Osmolality (280-301) mosm/kg AST (14-36) U/L Total Protein (6.3-8.2) g/dL Albumin (3.5-5.0) g/dL TSH (0.465-4.680) mIU/L Ur Random Sodium 22 L (30-90) mmol/L Assessment and Plan (1) Vasovagal syncope Status: Acute Code(s): R55 - SYNCOPE AND COLLAPSE (2) Amnesia Status: Acute Code(s): R41.3 - OTHER AMNESIA (3) Hyponatremia Status: Acute Code(s): E87.1 - HYPO-OSMOLALITY AND HYPONATREMIA Plan: This patient is a pleasant 76-year-old female who had a acute syncopal episode at home. She was brought into the emergency room for further evaluation. She is found to have evidence of severe hyponatremia with a serum sodium of 123. She was started on normal saline and admitted to the hospital. Her neurological examination at this time is nonfocal. She underwent computed tomography scan of the brain results which are noted above. This patient likely suffered acute vasovagal syncope secondary to severe hyponatremia. Would recommend slow correction of the hyponatremic state. Her serum sodium level today is 127. This is slowly improving. We will continue close neurological follow-up for this patient during this admission. She has no previous history of syncope and/or seizures. We will continue to monitor her closely for any neurological status. Her overall prognosis at this time remains guarded.
--- NOTE | 2017-02-19 11:14 | P.NPCON ---
History of Present Illness - Reason for Consult Consult date: 02/19/17 - Chief Complaint Chronic Hyponatremia with syncope - History of Present Illness This is a 76-year-old female seen in consultation because of hyponatremia that is chronically seen 2013. Her present complaint was weakness tiredness for about 1 week loss of appetite and syncope just before admission. There is no nausea vomiting diarrhea. No fever chills cough shortness of breath chest pain. No headache. She is not particularly dizzy. But there was some amount of supposedly confusion as per a sister was in the room. She is known with chronic hyponatremia. On 06/10/2014 her sodium was 130. Since then multiple sodium values or the course of the last 3 years have been between 123 to 131 at its highest. She was previously on salt tablets but that was discontinued because of high blood pressure. At the time of admission workup has shown sodium of 123, glucose 119, urine osmolality is 677 urine sodium is 25, normal TSH at 0.37, serum cortisol 21 mcg/ dL, creatinine 0.6 BUN 10 potassium 4.2. Blood sugars are normal. There was orthostatic changes on 02/17/2017 when she was admitted with a blood pressure of 103/55 standing up and 121/68 supine. she was given saline over the last 24 hours approximately. Sodium improved from 123-126 over about 6 hours and then to 128 over the last approximately 40 hours. Currently she has no orthostatic changes blood pressures are 132/67 with a heart rate of 72 supine and standing up is 131/64 with a heart rate of 77. A chest x-ray was unremarkable and a computed tomography scan of the head is unremarkable. Past Medical History Past Medical History: Asthma, Hyperlipidemia, Hypertension, Osteoarthritis (OA) , Sleep Apnea/CPAP/BIPAP Additional Past Medical History / Comment(s): hiatal hernia History of Any Multi-Drug Resistant Organisms: None Reported Past Surgical History: Appendectomy, Cholecystectomy Additional Past Surgical History / Comment(s): Bilateral cataract surgery, Cholecystectomy, appendectomy, colonoscopy about 10 years ago, rt oophorectomy and partial lt -pt can't remember why. Past Anesthesia/Blood Transfusion Reactions: No Reported Reaction Past Psychological History: Anxiety, Depression Additional Psychological History / Comment(s): pt lives in her 2 story home [place] has 4 front steps. her son,vin in law, 2 grandkids -live with her. no pets, no outside services recieved, no medical equipment. 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 Smoking Status: Never smoker Past Alcohol Use History: None Reported Past Drug Use History: None Reported - Past Family History Mother Family Medical History: Cancer, CVA/TIA Additional Family Medical History / Comment(s): breast cancer Father Family Medical History: CVA/TIA, Dementia Brother(s) Family Medical History: Coronary Artery Disease (CAD) Sister(s) Family Medical History: Cancer Son(s) Family Medical History: No Reported History Medications and Allergies Home Medications Medication Instructions Recorded Confirmed Type Beclomethasone Dip 80 Mcg/Puff 1 puff INHALATION RT-BID 02/17/17 02/17/17 History [Qvar 80 mcg] Benzonatate [Tessalon Perles] 100 mg PO TID PRN 02/17/17 02/17/17 History Bisoprolol [Zebeta] 5 mg PO HS 02/17/17 02/17/17 History Citalopram Hydrobromide 20 mg PO DAILY 02/17/17 02/17/17 History [Citalopram HBr] Doxycycline Hyclate [Doxycycline 100 mg PO BID 02/17/17 02/17/17 History Hyclate] LORazepam [Lorazepam] 1 mg PO HS 02/17/17 02/17/17 History Latanoprost [Latanoprost] 1 drop BOTH EYES HS 02/17/17 02/17/17 History Losartan/Hydrochlorothiazide 1 tab PO DAILY 02/17/17 02/17/17 History [Losartan-Hctz 100-25 mg Tab] Montelukast [Singulair] 10 mg PO HS 02/17/17 02/17/17 History Timolol 0.5% Ophth Gel Forming 1 drops BOTH EYES DAILY 02/17/17 02/17/17 History [Timoptic-Xe] Allergies Allergy/AdvReac Type Severity Reaction Status Date / Time Penicillins Allergy Unknown Verified 02/17/17 12:54 Physical Exam Vitals: Vital Signs Temp Pulse Resp BP BP Pulse Ox 02/19/17 08:00 97.5 F L 79 16 138/63 97 02/19/17 04:00 67 16 114/69 98 02/19/17 00:00 69 16 130/68 98 02/18/17 21:23 96 02/18/17 20:00 98.3 F 67 18 137/67 99 02/18/17 16:00 96.8 F L 72 16 139/72 100 02/18/17 11:28 96.2 F L 70 16 125/71 98 Intake and Output 02/18/17 02/19/17 02/19/17 22:59 06:59 14:59 Intake Total 1939 585 9085 Balance 6990 850 5438 Intake: IV 750 811 4055 Sodium Chloride 0.9% 1, 413 282 2380 000 ml @ 100 mls/hr IV . Q10H [facility] Rx#:[id number] Oral 240 Other: Voiding Method Toilet Toilet Toilet # Voids 1 2 Weight 85.4 kg 85.3 kg On examination she is awake alert oriented HEENT exam no JVP lymphadenopathy thyromegaly neck is supple no facial asymmetry Lungs are clear to auscultation and percussion with an occasional end expiratory wheezing. Heart sounds are unremarkable for any murmur rub gallop. Abdomen soft nontender no organomegaly status masses Extremity exam reveals possibly trace edema she has some tenderness over her shins. Neurologically awake alert oriented comfortable able to stand up on her own. No focal motor deficit Results - Lab Results Most recent lab results Calcium 8.5 mg/dL (8.4-10.2) 02/19/17 06:09 02/18/17 05:48 02/19/17 06:09 Assessment and Plan Plan: Impression. 1. Chronic hyponatremia since 2013 with multiple sodiums in the 120s. The low sodium is 123 on admission on 02/17/2017 prior to which it was in the 126 range to 128, her highest sodium was 131 on 12/14/2016. The cause of this is possibly and likely reset osmole stat. This might have been made worse by hydrochlorothiazide and volume depletion. She is responding to IV saline but rather slowly. Typical response off volume depletion is rapid correction of serum sodium with IV normal saline. Her low urine sodium in the 20s is suggestive of volume depletion and not of SIADH. The urine studies are somewhat confusing as I'm not sure when the IV fluids was started and when the urine tests were done. TSH and serum cortisol are normal blood sugars was normal in creatinine and lites lites were normal other than the sodium 2. History of hypertension. 3. Admitted with syncope, cause not very clear, possibly vasovagal versus possibly hypotensive from diuretics hydrochlorothiazide which was on her med list. 4. Mild wheezing but patient denies any history of asthma or COPD. Recommendation. We'll check a serum uric acid, Because her orthostatic changes are disappeared I'll discontinue the IV saline and allow her to reestablish her normal state of sodium on a regular diet. We will restudy her with urine test and serum lites as an outpatient. She could be discharged with the recommendation of 1200 mL fluid restriction, stay off off hydrochlorothiazide. Labs need to be done within 24-48 hours of discharge and followed up in our office. Thank you for this interesting case
--- NOTE | 2017-02-19 11:42 | P.PN ---
Subjective This is a 76-year-old female one of Dr. Lowe with a previous medical history significant for hypertension and hypertensive cardiovascular disease, osteoarthritis, patient has not been feeling well for the past week with poor appetite associated with early satiety, nausea feeling without any vomiting, patient was complaining of increased pressure behind her sinuses she ended up [facility], and she was prescribed doxycycline 100 mg orally twice every day along with the Tessalon Perles 3 times every day, patient only took one of each and the patient was going into the kitchen today where she felt extremely dizzy and then she passed out completely lasted for about 3-4 minutes EMS came and the patient was on the floor her [id number] ran to the kitchen and she found her on the floor without any loss of urine or stool there was no seizure activity described at that time. Patient was brought into the emergency department at [facility] via EMS and she was found to have a severe hyponatremia and hypokalemia along with hypochloremia, upon investigated the patient further she stated that she had significant diarrhea today and she had an episode of nausea and vomiting by the time she came to the emergency department, she has been taking her dictations on an empty stomach and she has a diuretics, patient stated also that the while ago she developed to have a severe hyponatremia and she was placed on sodium chloride tablets by Dr. Lowe but she was taken off of those because her sodium was back to normal. Patient had a computed tomography scan of the brain that was negative for acute infarct or bleed, chest x-ray was normal, EKG was normal, patient was admitted to the hospital for syncope thought to be vasovagal with orthostatic changes, patient will be seen and evaluated by neurology as well. 02/18: Patient has been evaluated by Dr. Adair likely patient suffered acute vasovagal syncope secondary to severe hyponatremia. Sodium is now 127, potassium is 3.3 and will be replaced. Chloride 94. IV fluids continued at 100 mL per hour. Urine osmolality and sodium ordered. Patient denies lightheadedness or dizziness. TSH was 0.374 and free T4 1 0.77. Blood and urine cultures are in process. A shunt went into a junctional rhythm for which cardiology consult and echocardiogram ordered. Bisoprlol placed on hold and losartan resumed without hydrochlorothiazide. Patient states her appetite is a little better. 02/19: Patient sodium remains low despite IV fluids of 0.9 and 100 mL per hour. Sodium is at 128. Urine osmolality is 572 and sodium 22. Consult added for Dr. Purcell with recommendations for IV fluids at 150 mL per hour. If repeat orthostatics are negative, IV fluids can be decreased. Uric acid to be checked. She is on a regular diet. Recommendations are for 1200 mL fluid restriction and off hydrochlorothiazide, repeat lab work in 24-48 hours after discharge and follow-up in the office. Objective - Vital Signs Vital signs: Vital Signs Temp 96.2 F L 02/18/17 11:28 Pulse 70 02/18/17 11:28 Resp 16 02/18/17 11:28 BP 125/71 02/18/17 11:28 Pulse Ox 98 02/18/17 11:28 Intake & Output 02/17/17 02/18/17 02/18/17 18:59 06:59 18:59 Intake Total 10 10 1320 Output Total 1 Balance 10 9 1320 Weight 85.4 kg Intake: IV 10 10 Invasive Line 2 10 10 Intake, IV Titration 1200 Amount Sodium Chloride 0.9% 1, 1200 000 ml @ 100 mls/hr IV . Q10H [facility] Rx#:[id number] Oral 120 Output: Stool 1 Other: Voiding Method Toilet Toilet Toilet # Voids 1 1 - Exam General appearance: average body habitus, no acute distress - EENT Eyes: anicteric sclerae, EOMI, PERRLA, no ptosis, no scleral icterus, normal appearance ENT: hearing grossly normal, NA/AT, normal oropharynx, no thrush Ears: bilateral: normal - Neck Neck: no lymphadenopathy, normal ROM, no rigidity, no stridor, no thyromegaly Carotids: bilateral: upstroke normal Thyroid: bilateral: normal size - Respiratory Respiratory: bilateral: diminished, negative: dullness, rales, rhonchi, wheezing , prolonged expiration, prolonged inspiration - Cardiovascular Rhythm: regular Heart sounds: normal: S1, S2 Abnormal Heart Sounds: no systolic murmur, no diastolic murmur, no S3 Gallop, no S4 Gallop - Gastrointestinal General gastrointestinal: normal bowel sounds, soft, no splenomegaly, no tenderness, no umbilical hernia, no ventral hernia - Integumentary Integumentary: normal, normal turgor - Neurologic Neurologic: CNII-XII intact - Musculoskeletal Musculoskeletal: gait normal, generalized weakness, strength equal bilaterally - Psychiatric Psychiatric: A&O x's 3, appropriate affect, intact judgment & insight - Labs CBC & Chem 7: 02/18/17 05:48 02/19/17 06:09 Labs: Abnormal Lab Results - Last 24 Hours (Table) 02/17/17 02/18/17 02/18/17 Range/Units 17:21 05:45 05:48 WBC 3.1 L (3.8-10.6) k/uL Neutrophils # (Manual) 1.2 L (1.3-7.7) k/uL Sodium 126 L 127 L (137-145) mmol/L Potassium 3.3 L (3.5-5.1) mmol/L Chloride 88 L 94 L (98-107) mmol/L BUN 19 H (7-17) mg/dL Glucose 106 H (74-99) mg/dL Osmolality 262 L (280-301) mosm/kg AST 52 H (14-36) U/L Total Protein 5.6 L (6.3-8.2) g/dL Albumin 2.9 L (3.5-5.0) g/dL TSH 0.374 L (0.465-4.680) mIU/L Assessment and Plan Plan: 1. Syncope likely related to hypovolemia with vasovagal reaction rule out cardiac arrhythmia. Patient was given normal saline 1 L followed by normal saline at 125 mL an hour, apply knee-high RAHEEL hose, we will follow-up with the patient, continue to monitor the orthostatics. Cardiology consult. Bisoprolol placed on hold. Urine osmolality and urine sodium as above. Consult with nephrology appreciated.. 2. Hypovolemic hyponatremia with hypochloremia and hypokalemia. Related to poor oral intake of fluid and the use of diuretics, subsequently we'll discontinue hydrochlorothiazide and continue losartan 100 mg orally once every day. 3. Acute sinusitis. Continue patient on IV anabiotic in the form of Levaquin. 4. Hypertension and hypertensive cardiovascular disease. Continue bisoprolol 5 mg orally once every day-held, losartan 100 mg orally once every day. 5. Glaucoma. Continue patient on timolol as well as Xalatan. 6. Osteoarthritis. Continue current pain management. 7. Anxiety disorder. Continue citalopram 20 mg orally once every day as well as lorazepam 1 mg at bedtime. 8. Asthma. Continue Qvar 80 g 1 puff inhalation twice every day as well as singular 10 mg at bed time. 9. DVT prophylaxis. Continue patient on heparin 5000 units subcutaneously every 12 hours, along with knee-high RAHEEL hose. 10. GI prophylaxis. Continue patient on Protonix 40 mg orally once every day. 11. Admitted to inpatient. Estimate a length of stay 2 midnights. 12. Patient is a full code. Discharge plan: Return home Impression and plan of care have been directed as dictated by the signing physician. Kassidy Goodwin nurse practitioner acting as scribe for signing physician. Time with Patient: Greater than 30
--- NOTE | 2017-02-19 12:24 | P.DS ---
Providers Date of admission: 02/17/17 15:04 Expected date of discharge: 02/19/17 Attending physician: Wayne Yeager Consults: 02/18/17 09:06 Consult Physician Routine Consulting Provider: Uri Del Angel Consult Reason/Comments: Junctional rhythm, Syncope Do you want consulting provider notified?: Yes 02/19/17 09:33 Consult Physician Routine Consulting Provider: Dedra Purcell Consult Reason/Comments: hyponatremia Do you want consulting provider notified?: Already Contacted Primary care physician: Aroldo Lowe [place] [facility] Course: This is a 76-year-old female one of Dr. Lowe with a previous medical history significant for hypertension and hypertensive cardiovascular disease, osteoarthritis, patient has not been feeling well for the past week with poor appetite associated with early satiety, nausea feeling without any vomiting, patient was complaining of increased pressure behind her sinuses she ended up [facility], and she was prescribed doxycycline 100 mg orally twice every day along with the Tessalon Perles 3 times every day, patient only took one of each and the patient was going into the kitchen today where she felt extremely dizzy and then she passed out completely lasted for about 3-4 minutes EMS came and the patient was on the floor her [id number] ran to the kitchen and she found her on the floor without any loss of urine or stool there was no seizure activity described at that time. Patient was brought into the emergency department at [facility] via EMS and she was found to have a severe hyponatremia and hypokalemia along with hypochloremia, upon investigated the patient further she stated that she had significant diarrhea today and she had an episode of nausea and vomiting by the time she came to the emergency department, she has been taking her dictations on an empty stomach and she has a diuretics, patient stated also that the while ago she developed to have a severe hyponatremia and she was placed on sodium chloride tablets by Dr. Lowe but she was taken off of those because her sodium was back to normal. Patient had a computed tomography scan of the brain that was negative for acute infarct or bleed, chest x-ray was normal, EKG was normal, patient was admitted to the hospital for syncope thought to be vasovagal with orthostatic changes, patient will be seen and evaluated by neurology as well. 02/18: Patient has been evaluated by Dr. Adair likely patient suffered acute vasovagal syncope secondary to severe hyponatremia. Sodium is now 127, potassium is 3.3 and will be replaced. Chloride 94. IV fluids continued at 100 mL per hour. Urine osmolality and sodium ordered. Patient denies lightheadedness or dizziness. TSH was 0.374 and free T4 1 0.77. Blood and urine cultures are in process. A shunt went into a junctional rhythm for which cardiology consult and echocardiogram ordered. Bisoprlol placed on hold and losartan resumed without hydrochlorothiazide. Patient states her appetite is a little better. 02/19: Patient sodium remains low despite IV fluids of 0.9 and 100 mL per hour. Sodium is at 128. Urine osmolality is 572 and sodium 22. Consult added for Dr. Purcell with recommendations for IV fluids at 150 mL per hour. If repeat orthostatics are negative, IV fluids can be decreased. Uric acid to be checked. She is on a regular diet. Recommendations are for 1200 mL fluid restriction and off hydrochlorothiazide, repeat lab work in 24-48 hours after discharge and follow-up in the office. Discharge diagnoses: 1. Syncope likely related to hypovolemia with vasovagal reaction rule out cardiac arrhythmia. 2. Hypovolemic hyponatremia with hypochloremia and hypokalemia. Related to poor oral intake of fluid and the use of diuretics with underlying chronic hyponatremia. 3. Acute sinusitis. 4. Hypertension and hypertensive cardiovascular disease. 5. Glaucoma. 6. Osteoarthritis, generalized. 7. Generalized anxiety disorder. 8. Asthma, mild persistent. Discharge plan: Return home Impression and plan of care have been directed as dictated by the signing physician. Kassidy Goodwin nurse practitioner acting as scribe for signing physician. Patient Condition at Discharge: Good Plan - Discharge Summary New Discharge Prescriptions: Losartan [Cozaar] 100 mg PO DAILY #30 tab Discharge Medication List Beclomethasone Dip 80 Mcg/Puff [Qvar 80 mcg] 1 puff INHALATION RT-BID 02/17/17 [ History] Benzonatate [Tessalon Perles] 100 mg PO TID PRN 02/17/17 [History] Bisoprolol [Zebeta] 5 mg PO HS 02/17/17 [History] Citalopram Hydrobromide [Citalopram HBr] 20 mg PO DAILY 02/17/17 [History] LORazepam [Lorazepam] 1 mg PO HS 02/17/17 [History] Latanoprost 1 drop BOTH EYES HS 02/17/17 [History] Montelukast [Singulair] 10 mg PO HS 02/17/17 [History] Timolol 0.5% Ophth Gel Forming [Timoptic-Xe 0.5% Gel Form] 1 drops BOTH EYES DAILY 02/17/17 [History] Losartan [Cozaar] 100 mg PO DAILY #30 tab 02/19/17 [Rx] Follow up Appointment(s)/Referral(s): Dedra Purcell MD [STAFF PHYSICIAN] - 1 Week (patient to make appointment. Office closed) Aroldo Lowe DO [Primary Care Provider] - 1 Week (Patient to call to make appointment. Office closed.) Ambulatory/Diagnostic Orders: Comprehensive Metabolic Panel [LAB.AMB] Location: Determined By Patient Patient Instructions/Handouts: Fluid Restriction (DC) Activity/Diet/Wound Care/Special Instructions: 1200 cc fluid restriction daily Discharge Disposition: HOME SELF-CARE
--- NOTE | 2017-02-19 16:40 | PN ---
This lady came in with vasovagal syncope, was dehydrated as well. She may have an underlying sodium concentration issues. She is being seen by nephrology. From a cardiac standpoint, I have no specific recommendations. She can be discharged with the understanding that she should follow up with nephrology and have her sodium checked. Vital signs are stable. There is no JVD or carotid bruit. S1, S2 are heard normally. Lungs are clear. Abdomen and lower extremity exam is unremarkable. She had an echocardiogram, which revealed normal systolic function. There are no orthostatic changes today. I will see her as needed and the patient may be discharged today with follow up by nephrology.
== END 2017-02-19 13:34 | disposition home or self-care (01) | DRG 641 ==
LOC: EC 11:19 → 6SEL 15:04
PROVIDERS: ADMIT Internal Medicine Geriatric Medicine; ATTEND Internal Medicine Geriatric Medicine
DX: E87.1 Hypo-osmolality and hyponatremia (principal); E86.1 Hypovolemia; I11.9 Hypertensive heart disease without heart failure; R55 Syncope and collapse; F32.9 Major depressive disorder, single episode, unspecified; E78.5 Hyperlipidemia, unspecified; E87.6 Hypokalemia; E87.8 Other disorders of electrolyte and fluid balance, not elsewhere classified; F41.1 Generalized anxiety disorder; G47.30 Sleep apnea, unspecified; H40.9 Unspecified glaucoma; J01.90 Acute sinusitis, unspecified; J45.30 Mild persistent asthma, uncomplicated; M19.90 Unspecified osteoarthritis, unspecified site; K44.9 Diaphragmatic hernia without obstruction or gangrene; R41.3 Other amnesia; Z79.899 Other long term (current) drug therapy; Z88.0 Allergy status to penicillin; Z82.49 Family history of ischemic heart disease and other diseases of the circulatory system
CPT/HCPCS: 36415; 70450; 71020; 80048; 80053; 81001; 82533; 82550; 82553; 83605; 83930; 83935; 84300; 84439; 84443; 84484; 84550; 85025; 85610; 85730; 87040; 87086; 93005; 93306; 94640; 94760; 96360; 96361; 99285

== ENCOUNTER → 2017-11-10 | Outpatient (CLI) | payer MEDICARE, BC ==
--- NOTE | 2017-11-14 08:45 | MM ---
Reason for exam: screening (asymptomatic). Last mammogram was performed 1 year and 2 months ago. History: Patient is postmenopausal and is nulliparous. Family history of breast cancer in sister at age 43, premenopausal breast cancer in sister at age 40, and breast cancer in mother at age 70. Physical Findings: A clinical breast exam by your physician is recommended on an annual basis and results should be correlated with mammographic findings. MG 3D Screening Mammo W/Cad Bilateral CC and MLO view(s) were taken. Prior study comparison: September 07, 2016, bilateral MG 3d screening mammo w/cad. July 01, 2015, bilateral MG screening mammo w CAD. There are scattered fibroglandular densities. Finding: There is a typically benign circumscribed round oval masses in comparison to multiple priors. No suspicious abnormality. No significant changes in finding since September 07, 2016 and July 01, 2015. ASSESSMENT: Benign, BI-RAD 2 RECOMMENDATION: Routine screening mammogram of both breasts in 1 year.
== END | disposition home or self-care (01) ==
LOC: RADMAMWWP 15:02
PROVIDERS: ATTEND Family Medicine
DX: Z12.31 Encounter for screening mammogram for malignant neoplasm of breast (principal)
CPT/HCPCS: 77063; G0202

== ENCOUNTER → 2019-01-16 | Outpatient (CLI) | payer MEDICARE, BC ==
--- NOTE | 2019-01-18 09:42 | MM ---
Reason for exam: screening (asymptomatic). Last mammogram was performed 1 year and 2 months ago. History: Patient is postmenopausal and is nulliparous. Family history of breast cancer in sister at age 43, premenopausal breast cancer in sister at age 40, and breast cancer in mother at age 70. Physical Findings: A clinical breast exam by your physician is recommended on an annual basis and results should be correlated with mammographic findings. MG 3D Screening Mammo W/Cad Bilateral CC and MLO view(s) were taken. Prior study comparison: November 10, 2017, bilateral MG 3d screening mammo w/cad. September 07, 2016, bilateral MG 3d screening mammo w/cad. There are scattered fibroglandular densities. There is a stable right lower inner quadrant mass back to 2015. Benign appearing bilateral calcifications. No suspicious abnormality. No significant changes when compared with prior studies. ASSESSMENT: Benign, BI-RAD 2 RECOMMENDATION: Routine screening mammogram of both breasts in 1 year.
== END | disposition home or self-care (01) ==
LOC: RADMAMWWP 13:31
PROVIDERS: ATTEND Family Medicine
DX: Z12.31 Encounter for screening mammogram for malignant neoplasm of breast (principal)
CPT/HCPCS: 77063; 77067